=== PATIENT | female | born 1990 | race Caucasian/White ===

== ENCOUNTER → 2019-02-15 | Outpatient (CLI) | payer MEDICAID ==
[~2019-02-15] MED LIST: ACHD5005 PO; AMPI500C9; DOCU-143 PO; IBUP-1773 PO
--- NOTE | 2019-02-15 11:16 | Diagnostic Imaging Report ---
INDICATION: survey. TECHNIQUE: Multiple real-time grayscale images were obtained over the gravid uterus. COMPARISON: None. FINDINGS: There is an intrauterine fetus in a transverse presentation. No heart motion is detected, consistent with demise. Placenta is anterior. Amniotic fluid is grossly unremarkable. Cervical length is 4.2 cm. Biometrical measurements are as follows: Biparietal 2.89 cm, age 15 weeks 2 days. Head circumference 11.67 cm, age 15 weeks 6 days. Abdominal circumference 10.63 cm, age 16 weeks 4 days. Femur length 2.02 cm, age 16 weeks 1 days. Sonographic estimate age: 16 weeks 0 days. Sonographic estimated date of delivery: 08/02/2019. Estimated Weight: 149 gm (+/- 22 gm). LMP percentile: 2%. heart rate: 0 beats per minute. number: 1 of 1. IMPRESSION: Findings consistent with a 16 weeks 0 day intrauterine demise. Dictated by: Dictated on workstation # [id number]
== END ==
LOC: RAD 09:58
PROVIDERS: ATTEND Obstetrics & Gynecology
DX: Z36.89 Encounter for other specified antenatal screening (principal); Z3A.16 16 weeks gestation of pregnancy
CPT/HCPCS: 76805

== ENCOUNTER 2019-02-18 00:53 | Observation (INO) | payer MEDICAID | END 2019-02-18 11:40 | disposition home or self-care (01) | LOC: ER 00:53 → WS 02:00 ==

== ENCOUNTER 2019-03-19 18:31 | Emergency (ER) | payer MEDICAID ==
[~2019-03-19] VITALS: Ht 167.6 cm; Wt 122.5 kg
--- NOTE | 2019-03-19 18:42 | NUR ---
B/P 146/54
[2019-03-19] MEDS ORDERED: FAMOTIDINE 20 MG (PEPCID) TABLET PO STA (18:47)
[2019-03-19] MEDS ORDERED: ONDANSETRON 4 MG (ZOFRAN) ORAL DISSOLVE TAB SL STA (18:47)
[2019-03-19 18:52] LABS: BILIRUBIN,URINE NEGATIVE (NEGATIVE); CLARITY,URINE CLEAR; COLOR,URINE YELLOW; GLUCOSE, URINE (UA) NEGATIVE (NEGATIVE); KETONES,URINE NEGATIVE (NEGATIVE); LEUKOCYTE ESTERASE ,URINE 1+ (NEGATIVE); NITRITE,URINE NEGATIVE (NEGATIVE); PH,URINE 6 (5-9); PROTEIN,URINE NEGATIVE (NEGATIVE); UROBILINOGEN,URINE NORMAL (NORMAL)
--- NOTE | 2019-03-19 18:54 | ED Abdominal Pain ---
General Chief Complaint: Abdominal/GI Problems Stated Complaint: ABD PAIN Nursing Triage Note: pt had an intense epigastric pain while cooking supper then vomited after. Pt has a tight squeezing pressure still. Sepsis Screen: No Definite Risk Source of Information: Patient Exam Limitations: No Limitations History of Present Illness Date Seen by Provider: Mar 19, 2019 Time Seen by Provider: 18:40 Initial Comments The patient presents to the ER by private conveyance with chief complaint that she was fixing dinner for or family within the last hour and she had a sudden wave of pain 8 out of 10 with a wave of nausea and vomiting times one. The pain was epigastric. She's never had anything like this before. No history of abdominal surgeries. No medical history. She is not having any medicines. No dysuria fever chills cough shortness of breath. She says she had not sat down to eat yet; they were making quesadillas. She did not try taking anything for the pain. She's no longer feeling nauseated and her pain presently is a 6 out of 10. She'll bowel movement earlier today normal formed. Allergies and Home Medications Allergies Coded Allergies: No Known Drug Allergies (Unverified , 02/18/19) Patient Home Medication List Home Medication List Reviewed: Yes Review of Systems Review of Systems Constitutional: No chills, No fever EENTM: No Blurred Vision, No Double Vision Respiratory: Denies Cough, Denies Orthopnea Cardiovascular: Denies Chest Pain, Denies Edema Gastrointestinal: Denies Abdomen Distended; Abdominal Pain; Denies Constipated, Denies Diarrhea; Nausea, Vomiting Past Mdxrxtt-Ufsjft-Asjxww Hx Patient Social History Alcohol Use: Rarely Uses Number of Drinks Today: AA Alcohol Beverage of Choice: Beer Recreational Drug Use: No Smoking Status: Never a Smoker Recent Foreign Travel: No Contact w/Someone Who Travel: No Recent Infectious Disease Expo: No Recent Hopitalizations: No Immunizations Up To Date Tetanus Booster (TDap): Less than 5yrs PED Vaccines UTD: Yes Seasonal Allergies Seasonal Allergies: No Past Medical History Surgeries: No Respiratory: No Cardiac: No Neurological: No Gastrointestinal: No Musculoskeletal: No Endocrine: No HEENT: No Cancer: No Psychosocial: No Integumentary: No Physical Exam Vital Signs Vital Signs - First Documented 03/19/19 18:36 O2 Delivery Room Air Capillary Refill : Less Than 3 Seconds Height/Weight/BMI Height: 5'6.00" Weight: 270lbs. 0.0oz. 122.479750kn; 39.2 BMI Method:Stated General Appearance: WD/WN, no apparent distress HEENT: PERRL/EOMI, pharynx normal Respiratory: no respiratory distress, no accessory muscle use Cardiovascular: normal peripheral pulses, regular rate, rhythm, no edema Peripheral Pulses: 2+ Radial Pulses (R), 2+ Radial Pulses (L) Gastrointestinal: normal bowel sounds, soft, tenderness (epigastric midline) Neurologic/Psychiatric: alert, normal mood/affect Progress/Results/Core Measures Results/Orders Lab Results Laboratory Tests Test 03/19/19 18:45 Range/Units Urine Color YELLOW Urine Clarity CLEAR Urine pH 6 5-9 Urine Specific [place] 1.025 H 1.016-1.022 Urine Protein NEGATIVE NEGATIVE Urine Glucose (UA) NEGATIVE NEGATIVE Urine Ketones NEGATIVE NEGATIVE Urine Nitrite NEGATIVE NEGATIVE Urine Bilirubin NEGATIVE NEGATIVE Urine Urobilinogen NORMAL NORMAL MG/DL Urine Leukocyte Esterase 1+ H NEGATIVE Urine RBC (Auto) NEGATIVE NEGATIVE Urine RBC NONE /HPF Urine WBC NONE /HPF Urine Squamous Epithelial Cells 10-25 H /HPF Urine Crystals NONE /LPF Urine Bacteria TRACE /HPF Urine Casts NONE /LPF Urine Mucus NEGATIVE /LPF Urine Culture Indicated NO My Orders Orders - DIANA MARKS Ua Culture If Indicated (03/19/19 18:32) Urine Bedside (03/19/19 18:32) Ondansetron Oral Dissolve Tab (Zofran (03/19/19 18:47) Lidocaine 2% Viscous 15 Ml (Xylocaine Vi (03/19/19 19:00) Famotidine Tablet (Pepcid Tablet) (03/19/19 18:47) Antacid Suspension (Mylanta Suspension (03/19/19 19:00) Medications Given in ED Current Medications Medications Dose Ordered Sig/Katherine Route Start Time Stop Time Status Last Admin Dose Admin Al Hydrox/Mg Hydrox/Simethicone 30 ml ONCE ONCE PO 03/19/19 19:00 03/19/19 19:01 DC 03/19/19 19:00 30 ML Lidocaine HCl 15 ml ONCE ONCE PO 03/19/19 19:00 03/19/19 19:01 DC 03/19/19 19:01 15 ML Vital Signs/I&O 03/19/19 18:36 B/P (MAP) O2 Delivery Room Air Progress Progress Note #1: Time: 18:53 Progress Note We'll start with Zofran and a GI cocktail. She says she is not having any nausea vomiting. If it does not help her symptoms then we'll obtain labs and if necessary imaging. Urinalysis with bedside test. Progress Note #2: Time: 19:22 Progress Note The GI cocktail made a significant decrease in the patient's symptoms. She was not having nausea before the Zofran. Plan to put her out on Carafate and omeprazole with planned follow-up with Dr. Alexander. Departure Impression Primary Impression: Gastritis Qualified Codes: K29.00 - Acute gastritis without bleeding Disposition: HOME, SELF-CARE Condition: Stable Departure-Patient Inst. Decision time for Depature: 19:23 Referrals: ANTONINO ALEXANDER,LOCAL PHYSICIAN (PCP) Primary Care Physician Patient Instructions: Gastritis (DC) Add. Discharge Instructions: Plan to protect your stomach by reducing the acid using omeprazole 40 mg daily for the next 2-4 weeks. You should also flower picker the Carafate and take one tablet half an hour before meals and at bedtime, 4 times a day for the next 2 weeks. Plan to follow up with the general surgeon Dr. Alexander to review your case and discuss whether endoscopy is indicated in 2 weeks. Return to the ER if you have intractable nausea, vomiting, fever or pain. All discharge instructions reviewed with patient and/or family. Voiced understanding. Scripts Omeprazole (Omeprazole) 40 Mg Capsule. 40 MG PO DAILY for 30 Days, #30 CAP 0 Refills Prov: DIANA MARKS 03/19/19 Sucralfate (Carafate) 1 Gm Tablet 1 GM PO QIDACHS for 14 Days, #56 TAB 0 Refills Prov: DIANA MARKS 03/19/19 Copy Copies To 1: ANTONINO ALEXANDER TITUS J Mar 19, 2019 18:54
[2019-03-19 19:00] LABS: BACTERIA,URINE TRACE /HPF
[2019-03-19] MEDS ORDERED: LIDOCAINE 2% VISCOUS 15 ML UDC PO ONE (19:00)
[2019-03-19] MEDS ORDERED: ANTACID SUSP 30 ML UDC (MYLANTA) PO ONE (19:00)
--- NOTE | 2019-03-19 19:02 | NUR ---
REPORT TO ADELINA MAYORGA
[2019-03-19] MEDS ORDERED: SUCR1TAB36 PO (19:26)
[2019-03-19] MEDS ORDERED: OMEP40CA36 PO (19:26)
[2019-03-19 19:43] VITALS: BP 126/78
== END 2019-03-19 19:41 | disposition home or self-care (01) ==
LOC: EDUNIT# 18:31 → ER 18:32
DX: K29.70 Gastritis, unspecified, without bleeding (principal)
CPT/HCPCS: 81000; 84703; 99283

== ENCOUNTER 2021-07-20 02:02 | Emergency (ER) | payer SELFPAY ==
[~2021-07-20] VITALS: Ht 173 cm; Wt 136.0 kg
[~2021-07-20 02:02] MED LIST changes: +OMEP40CA6 PO; +SUCR1TAB36 PO
[2021-07-20] MEDS ORDERED: KETOROLAC 60 MG/2 ML VIAL IM STA (02:25)
[2021-07-20] MEDS ORDERED: ONDANSETRON 4 MG (ZOFRAN) ORAL DISSOLVE TAB SL STA (02:25)
--- NOTE | 2021-07-20 02:33 | ED General ---
General Chief Complaint: Head/Cervical Problems Stated Complaint: NECK & JAW PAIN Nursing Triage Note: right sided neck pain radiating to right jaw x12 days Source of Information: Patient History of Present Illness Date Seen by Provider: Jul 20, 2021 Time Seen by Provider: 02:15 Initial Comments PT ARRIVES VIA POV FROM HOME--DROVE SELF HERE C/O PAIN TO RIGHT SIDE OF NECK, RADIATING TO RIGHT JAW X 12 DAYS STATES ALL THE TEETH ON THE RIGHT SIDE--BOTH UPPER AND LOWER--ALL HURT C/O NUMBNESS AND TINGLING DOWN RIGHT ARM + NAUSEA ALL DAY, VOMITED X 2 TODAY C/O HEADACHE ON RIGHT SIDE OF HEAD NO FEVER OR RECENT ILLNESS NO URI SYMPTOMS STATES SHE HAS BEEN MOVING, BUT DENIES ANY HEAVY LIFTING NO RELIEF WITH IBUPROFEN "2500 MG" AND TYLENOL "1200 MG" TODAY STATES SHE HAD SIMILAR PROBLEM 2 YEARS AGO, BUT WENT TO [facility] AND SYMPTOMS RESOLVED HAS NOT SOUGHT CARE ANYWHERE UNTIL TONIGHT SYMPTOMS NO DIFFERENT TONIGHT STATES SYMPTOMS JUST GRADUALLY GETTING WORSE OVER TIME LMP 2018--HAS IUD IN PLACE PCP: MELISSA Allergies and Home Medications Allergies Coded Allergies: No Known Drug Allergies (Unverified , 02/18/19) Patient Home Medication List Home Medication List Reviewed: Yes Discontinued Medications Omeprazole (Omeprazole) 40 Mg Capsule., 40 MG PO DAILY Discontinued Reason: No Longer Taking Prescribed by: DIANA MARKS on 03/19/191925 Last Action: Discontinued Sucralfate (Carafate) 1 Gm Tablet, 1 GM PO QIDACHS Discontinued Reason: No Longer Taking Prescribed by: DIANA MARKS on 03/19/191925 Last Action: Discontinued Review of Systems Review of Systems Constitutional: no symptoms reported EENTM: see HPI Respiratory: no symptoms reported Cardiovascular: other (RIGHT UPPER CHEST DISCOMFORT X 1 WEEK) Gastrointestinal: see HPI; No abdominal pain; nausea, vomiting Genitourinary: no symptoms reported Musculoskeletal: see HPI, neck pain Skin: no symptoms reported; No rash Psychiatric/Neurological: See HPI, Anxiety, Headache, Numbness, Paresthesia; Denies Weakness Hematologic/Lymphatic: No Symptoms Reported Immunological/Allergic: no symptoms reported Past Mcwrqaq-Mepcys-Teplfy Hx Patient Social History Tobacco Use?: No Substance use?: No Alcohol Use?: No Pt feels they are or have been: No Immunizations Up To Date Tetanus Booster (TDap): Less than 5yrs PED Vaccines UTD: Yes Seasonal Allergies Seasonal Allergies: No Past Medical History Surgery/Hospitalization HX: BMT'S APPENDECTOMY D&C FOR MISCARRIAGE SALPINGECTOMY FOR ECTOPIC Surgeries: Yes Appendectomy, Ear Surgery Respiratory: Yes Asthma Cardiac: No Neurological: No Reproductive Disorders: Yes (ECTOPIC WITH SALPINGECTOMY, MISCARRIAGE WITH D&C) Genitourinary: No Gastrointestinal: No Musculoskeletal: No Endocrine: Yes (OBESITY) HEENT: No Cancer: No Psychosocial: No Integumentary: No Blood Disorders: No Physical Exam Vital Signs Vital Signs - First Documented 07/20/21 02:09 Temp 36.8 Pulse 74 Resp 16 B/P (MAP) 197/112 (140) Pulse Ox 97 O2 Delivery Room Air Capillary Refill : Height, Weight, BMI Height: 5'6.00" Weight: 270lbs. 0.0oz. 122.144185bl; 45.00 BMI Method:Stated General Appearance: WD/WN, Anxious HEENT: PERRL/EOMI, TMs Normal, Pharynx Normal, Moist Mucous Membranes, Other (RIGHT TMJ AND MANDIBULAR TENDERNESS BUT NO TRISMUS. NO EVIDENCE OF DENTAL INFECTION. NO SWELLING TO FACE. TENDERNESS TO RIGHT MASTOID/POST AURICULAR AREA.) Neck: Full Range of Motion, Tender Lateral (TENDERNESS TO RIGHT POSTERIOR NECK AND TRAPEZIUS AREA) Respiratory: Normal Breath Sounds, No Accessory Muscle Use, No Respiratory Distress, Other (TENDERNESS TO RIGHT TRAPEZIUS, CLAVICLE AND SUBCLAVICULAR AREA) Cardiovascular: Regular Rate, Rhythm, No Edema, No JVD, No Murmur, Normal Peripheral Pulses Gastrointestinal: Soft Back: No CVA Tenderness, No Vertebral Tenderness, Other (RIGHT TRAPEZIUS MUSCLE TENDERNESS AND SPASMS--PALPATION DRAMATICALLY REPRODUCES PAIN ) Extremity: Normal Capillary Refill, Normal Inspection, Normal Range of Motion, Non Tender, No Calf Tenderness, No Pedal Edema Neurologic/Psychiatric: Alert, Oriented x3, No Motor/Sensory Deficits, hot baller II- XII Norm as Tested Skin: Normal Color, Warm/Dry; No Rash; Tattoos/Piercings Progress/Results/Core Measures Suspected Sepsis SIRS Temperature: Pulse: 74 Respiratory Rate: 16 Blood Pressure 197 /112 Mean: 140 Results/Orders My Orders Orders - DARREL IVAN DO Ct Head/Face/Cervical Wo (07/20/21 02:25) Ondansetron Oral Dissolve Tab (Zofran (07/20/21 02:25) Ketorolac Injection (Toradol Injection) (07/20/21 02:25) Vital Signs/I&O 07/20/21 07/20/21 02:09 02:31 Temp 36.8 36.8 Pulse 74 Resp 16 B/P (MAP) 197/112 (140) Pulse Ox 97 O2 Delivery Room Air Capillary Refill : Blood Pressure Mean: 140 Progress Note : Progress Note GIVEN ZOFRAN ODT AND TORADOL IM WITH IMPROVEMENT IN SYMPTOMS Diagnostic Imaging Comments CT HEAD/MAXILLOFACIALS/CERVICAL SPINE--PER [facility] VIA FAX AT Departure Impression Primary Impression: Trapezius muscle strain Disposition: 01 HOME, SELF-CARE Condition: Improved Departure-Patient Inst. Decision time for Depature: 03:59 Referrals: [facility] ESCAM[facility] Patient Instructions: Muscle Strain ED Add. Discharge Instructions: MOIST HEAT TO AREA AT 20 MINUTE INTERVALS LOTS OF FLUIDS FOLLOW UP WITH [facility] OR YOUR [facility] THIS WEEK FOR FURTHER CARE All discharge instructions reviewed with patient and/or family. Voiced understanding. Scripts Cyclobenzaprine HCl (Cyclobenzaprine HCl) 10 Mg Tablet 10 MG PO Q8H PRN for SPASMS, #15 TAB 0 Refills Prov: DARREL IVAN DO 07/20/21 Ondansetron (Ondansetron Odt) 4 Mg Tab.rapdis 4 MG PO Q4H for Nausea/Vomiting, #10 TAB Prov: DARREL IVAN DO 07/20/21 Ketorolac Tromethamine (Ketorolac Tromethamine) 10 Mg Tablet 10 MG PO Q6H for Pain, #15 TAB Prov: DARREL IVAN DO 07/20/21 DARREL IVAN DO Jul 20, 2021 02:33
[2021-07-20] MEDS ORDERED: RX-CYCLOBENZAPRINE 10 MG (FLEXERIL) TAB PPK#3 PO STA (03:58)
[2021-07-20] MEDS ORDERED: CYCL10TA25 PO (04:00)
[2021-07-20] MEDS ORDERED: KETO10TA PO (04:00)
[2021-07-20] MEDS ORDERED: ONDA4TAB11 PO (04:00)
[2021-07-20 04:04] VITALS: BP 160/102
--- NOTE | 2021-07-20 05:14 | Diagnostic Imaging Report ---
EXAMINATION: CT head, face and CT cervical spine without contrast. TECHNIQUE: Multiple contiguous axial images were obtained through the face, brain and cervical spine without the use of intravenous contrast. Sagittal and coronal reformations through the cervical spine were then performed. All CT scans use one or more of the following dose optimizing techniques: automated exposure control, MA and/or KvP adjustment based on patient size and exam type or iterative reconstruction. HISTORY: Head and neck pain after injury COMPARISON: None available. FINDINGS: HEAD: The ventricles and sulci are normal. No abnormal attenuation of brain parenchyma is present. No acute intracranial hemorrhage or abnormal extra-axial fluid collections are present. No hyperdense vessel. The calvarium is intact. The mastoid air cells are clear. Bilateral maxillary sinus polyps versus mucous retention cysts. The orbits are normal. C-SPINE: Vertebral body height and alignment are preserved. No acute fracture, dislocation, or destructive osseous process. No facet hypertrophy or perched facets. No significant central canal or neuroforaminal stenosis. The paraspinous soft tissues are normal. The visualized thyroid gland is normal. The visualized lung apices are normal. FACE: No fracture is seen in the face. The nasal bones are normal. Mandible and maxillae are normal. Zygomatic arches are normal. Pterygoid plates are normal. No soft tissue abnormality is seen. IMPRESSION: 1. No acute intracranial abnormality. 2. No cervical spine fracture. 3. No fracture in the face. 4. Agree with preliminary interpretation. Dictated by: Dictated on workstation # [id number]
== END 2021-07-20 04:05 | disposition home or self-care (01) ==
LOC: EDUNIT# 02:02 → ER 02:06
DX: S46.911A Strain of unspecified muscle, fascia and tendon at shoulder and upper arm level, right arm, initial encounter (principal); J45.909 Unspecified asthma, uncomplicated; E66.9 Obesity, unspecified; Z68.42 Body mass index [BMI] 45.0-49.9, adult; X58.XXXA Exposure to other specified factors, initial encounter
CPT/HCPCS: 70450; 70486; 72125

== ENCOUNTER 2021-12-21 00:25 | Emergency (ER) | payer OTHER ==
[~2021-12-21] VITALS: Ht 172.8 cm; Wt 136.0 kg
[~2021-12-21 00:25] MED LIST changes: +CYCL10TA25 PO; +KETO10TA PO; +ONDA4TAB11 PO
[2021-12-21 00:59] VITALS: BP 143/89
[2021-12-21] MEDS ORDERED: LACTATED RINGERS 1,000 ML IV ONE (01:15)
[2021-12-21 01:18] LABS: BASOPHILS % (AUTO) 0 % (0-10); EOSINOPHILS # (AUTO) 0.1 10^3/uL (0.0-0.3); EOSINOPHILS % (AUTO) 1 % (0-10); HEMATOCRIT 39 % (35-52); HEMOGLOBIN 12.7 g/dL (11.5-16.0); LYMPHOCYTES # (AUTO) 2.4 10^3/uL (1.0-4.0); LYMPHOCYTES % (AUTO) 26 % (12-44); MEAN CORPUSCULAR HEMOGLOBIN 28 pg (25-34); MEAN CORPUSCULAR HGB CONC 33 g/dL (32-36); MEAN CORPUSCULAR VOLUME 84 fL (80-99); MEAN PLATELET VOLUME 9.6 fL (9.0-12.2); MONOCYTES # (AUTO) 0.6 10^3/uL (0.0-1.0); MONOCYTES % (AUTO) 7 % (0-12); NEUTROPHILS # (AUTO) 6.1 10^3/uL (1.8-7.8); NEUTROPHILS % (AUTO) 66 % (42-75); PLATELET COUNT 325 10^3/uL (130-400); WHITE BLOOD COUNT 9.2 10^3/uL (4.3-11.0)
[2021-12-21 01:20] LABS: BILIRUBIN,URINE NEGATIVE (NEGATIVE); CLARITY,URINE CLEAR; COLOR,URINE YELLOW; GLUCOSE, URINE (UA) NEGATIVE (NEGATIVE); KETONES,URINE NEGATIVE (NEGATIVE); LEUKOCYTE ESTERASE ,URINE NEGATIVE (NEGATIVE); NITRITE,URINE NEGATIVE (NEGATIVE); PROTEIN,URINE NEGATIVE (NEGATIVE)
[2021-12-21 01:35] LABS: BACTERIA,URINE NEGATIVE /HPF; SQUAMOUS EPITHELIAL CELL,UR 0-2 /HPF
[2021-12-21 01:37] LABS: ALBUMIN 4.2 GM/DL (3.2-4.5); POTASSIUM 4.1 MMOL/L (3.6-5.0)
[2021-12-21 01:38] LABS: CALCIUM 9.2 MG/DL (8.5-10.1)
[2021-12-21 01:39] LABS: TOTAL PROTEIN 7.6 GM/DL (6.4-8.2)
[2021-12-21 01:41] LABS: BILIRUBIN,TOTAL 0.3 MG/DL (0.1-1.0)
[2021-12-21 01:43] LABS: CREATININE SERUM 0.71 MG/DL (0.60-1.30)
[2021-12-21 01:52] LABS: AMPHETAMINE SCREEN, URINE NEGATIVE (NEGATIVE); BARBITURATE SCREEN URINE NEGATIVE (NEGATIVE); BENZODIAZEPINES SCREEN URINE NEGATIVE (NEGATIVE); CANNABINOID SCREEN, URINE NEGATIVE (NEGATIVE); COCAINE SCREEN URINE NEGATIVE (NEGATIVE); METHADONE STAT NEGATIVE (NEGATIVE); OPIATE SCREEN URINE NEGATIVE (NEGATIVE); OXYCODONE STAT NEGATIVE (NEGATIVE); PROPOXYPHENE STAT NEGATIVE (NEGATIVE); TRICYCLIC ANTIDEPRESSANTS SCRE NEGATIVE (NEGATIVE)
[2021-12-21] MEDS ORDERED: NS 100 ML (IVPB) BAG IV ONE (02:15)
[2021-12-21] MEDS ORDERED: CATHETER FLUSH 10 ML SYR IV PRN (02:15)
[2021-12-21] MEDS ORDERED: IOHEXOL 350 MG/ML 100 ML (OMNIPAQUE 350) VIAL IV ONE (02:15)
[2021-12-21] MEDS ORDERED: PANTOPRAZOLE 40 MG (PROTONIX) VIAL ONE (02:52)
[2021-12-21] MEDS ORDERED: ONDANSETRON 4 MG/2 ML (SDV) Z0FRAN ONE (02:52)
[2021-12-21] MEDS ORDERED: ONDANSETRON 4 MG/2 ML (SDV) Z0FRAN IVP ONE ×2 (03:00→03:30)
[2021-12-21] MEDS ORDERED: PANTOPRAZOLE 40 MG (PROTONIX) VIAL IV ONE (03:00)
[2021-12-21] MEDS ORDERED: KETOROLAC 30 MG/ML VIAL IVP ONE (03:30)
[2021-12-21] MEDS ORDERED: HYOSCYAMINE 0.125 MG (LEVSIN) TAB PO ONE (03:30)
[2021-12-21] MEDS ORDERED: PANT40TA2 PO (03:39)
[2021-12-21] MEDS ORDERED: ONDA8TAB13 PO (03:39)
[2021-12-21] MEDS ORDERED: HYOS0.1283 SL (03:39)
--- NOTE | 2021-12-21 03:39 | ED Abdominal Pain ---
General Chief Complaint: Abdominal/GI Problems Stated Complaint: UPPER ABD PAIN Nursing Triage Note: Pt ambulates to ED 7 with c/o upper mid abdominal pain. Reports it started approximately 0430 Monday morning and has progressively gotten worse. Ibuprofen initially helped the pain this morning but this evening, it has not helped at all. Source of Information: Patient History of Present Illness Date Seen by Provider: Dec 21, 2021 Time Seen by Provider: 01:10 Initial Comments PT ARRIVES VIA POV FROM HOME C/O EPIGASTRIC PAIN THAT RADIATES STRAIGHT THRU TO BACK, SINCE WAKING AT 0430 ON 12/20/21 PAIN HAS BEEN A CONSTANT DULL ACHE, AND NOW IS A CONSTANT SQUEEZING PAIN + NAUSEA, NO VOMITING NORMAL BM TODAY NO URINARY SYMPTOMS NO FEVER NO HISTORY OF SIMILAR PT HAS HAD APPENDECTOMY, SALPINGECTOMY FOR ECTOPIC AND D&C. PT HAS IUD IN PLACE WITH LMP UNKNOWN. NO PRIOR GI PROBLEMS TOOK IBUPROFEN EARLIER TODAY WITH MINIMAL RELIEF. LAST ATE AT 1800--STEAK AND POTATOES. PCP: [facility] Allergies and Home Medications Allergies Coded Allergies: No Known Drug Allergies (Unverified , 02/18/19) Patient Home Medication List Home Medication List Reviewed: Yes Cyclobenzaprine HCl (Cyclobenzaprine HCl) 10 Mg Tablet, 10 MG PO Q8H PRN for SPASMS Prescribed by: DARREL IVAN on 07/20/21399 Hyoscyamine Sulfate (Levsin-Sl) 0.125 Mg Tab.subl, 0.25 MG SL Q4H Prescribed by: DARREL IVAN on 12/21/21338 Ketorolac Tromethamine (Ketorolac Tromethamine) 10 Mg Tablet, 10 MG PO Q6H Prescribed by: DARREL IVAN on 07/20/21399 Ondansetron (Ondansetron Odt) 4 Mg Tab.rapdis, 4 MG PO Q4H Prescribed by: DARREL IVAN on 07/20/21399 Ondansetron (Ondansetron Odt) 8 Mg Tab.rapdis, 8 MG PO Q6H Prescribed by: DARREL IVAN on 12/21/21338 Pantoprazole Sodium (Protonix) 40 Mg Tablet.dr, 40 MG PO DAILY Prescribed by: DARREL IVAN on 12/21/21338 Review of Systems Review of Systems Constitutional: no symptoms reported Respiratory: No Symptoms Reported Cardiovascular: No Symptoms Reported Gastrointestinal: See HPI, Abdominal Pain; Denies Constipated, Denies Diarrhea; Nausea; Denies Vomiting Genitourinary: No Symptoms Reported Musculoskeletal: see HPI, back pain Skin: no symptoms reported Psychiatric/Neurological: No Symptoms Reported Endocrine: No Symptoms Reported Hematologic/Lymphatic: No Symptoms Reported Past Idampuv-Lizism-Qwtpmz Hx Patient Social History Tobacco Use?: No Smoking Status: Never a Smoker Smokeless Tobacco Frequency: Never a User Use of E-Cig and/or Vaping dev: No Substance use?: No Alcohol Use?: No Pt feels they are or have been: No Immunizations Up To Date Tetanus Booster (TDap): Less than 5yrs PED Vaccines UTD: Yes Influenza Vaccine Up-to-Date: No; Not Current First/Initial COVID19 Vaccinat: N/A Seasonal Allergies Seasonal Allergies: No Past Medical History Surgery/Hospitalization HX: APPENDECTOMY, D&C FOR MISCARRIAGE, SALPINGECTOMY FOR ECTOPIC Surgeries: Yes Appendectomy, Ear Surgery Respiratory: Yes Asthma Cardiac: No Neurological: No : No Hx : 4 Hx Para: 2 Hx Total # of Abortions (Sp): 2 (1 MISCARRIAGE1 ECTOPIC) Reproductive Disorders: Yes (ECTOPIC WITH SALPINGECTOMY, MISCARRIAGE WITH D&C) 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 0.0oz. 122.431825ho; 45.00 BMI Method:Stated General Appearance: WD/WN, obese HEENT: PERRL/EOMI; No scleral icterus (R), No scleral icterus (L) Neck: normal inspection Respiratory: normal breath sounds, no respiratory distress, no accessory muscle use Cardiovascular: regular rate, rhythm, no murmur Gastrointestinal: normal bowel sounds, soft, no organomegaly, no pulsatile mass; No distended, No guarding, No rebound; tenderness (MODERATE EPIGASTRIC AND RUQ TENDERNESS. MILD PERIUMBILICAL AND SUPRAPUBIC TENDERNESS); No hernia, No mass Extremities: normal inspection Back: normal inspection, no CVA tenderness, no vertebral tenderness Neurologic/Psychiatric: inspector hairspring II-XII nml as tested, no motor/sensory deficits, alert, normal mood/affect, oriented x 3 Skin: normal color, warm/dry Progress/Results/Core Measures Results/Orders Lab Results Laboratory Tests Test 12/21/21 01:10 12/21/21 01:15 12/21/21 01:30 Range/Units White Blood Count 9.2 4.3-11.0 10^3/uL Red Blood Count 4.60 3.80-5.11 10^6/uL Hemoglobin 12.7 11.5-16.0 g/dL Hematocrit 39 35-52 % Mean Corpuscular Volume 84 80-99 fL Mean Corpuscular Hemoglobin 28 25-34 pg Mean Corpuscular Hemoglobin Concent 33 32-36 g/dL Red Cell Distribution Width 14.2 10.0-14.5 % Platelet Count 325 130-400 10^3/uL Mean Platelet Volume 9.6 9.0-12.2 fL Immature Granulocyte % (Auto) 1 % Neutrophils (%) (Auto) 66 42-75 % Lymphocytes (%) (Auto) 26 12-44 % Monocytes (%) (Auto) 7 0-12 % Eosinophils (%) (Auto) 1 0-10 % Basophils (%) (Auto) 0 0-10 % Neutrophils # (Auto) 6.1 1.8-7.8 10^3/uL Lymphocytes # (Auto) 2.4 1.0-4.0 10^3/uL Monocytes # (Auto) 0.6 0.0-1.0 10^3/uL Eosinophils # (Auto) 0.1 0.0-0.3 10^3/uL Basophils # (Auto) 0.0 0.0-0.1 10^3/uL Immature Granulocyte # (Auto) 0.1 0.0-0.1 10^3/uL Sodium Level 138 135-145 MMOL/L Potassium Level 4.1 3.6-5.0 MMOL/L Chloride Level 104 98-107 MMOL/L Carbon Dioxide Level 23 21-32 MMOL/L Anion Gap 11 5-14 MMOL/L Blood Urea Nitrogen 15 7-18 MG/DL Creatinine 0.71 0.60-1.30 MG/DL Estimat Glomerular Filtration Rate 117 BUN/Creatinine Ratio 21 Glucose Level 125 H 70-105 MG/DL Calcium Level 9.2 8.5-10.1 MG/DL Corrected Calcium 9.0 8.5-10.1 MG/DL Total Bilirubin 0.3 0.1-1.0 MG/DL Aspartate Amino Transf (AST/SGOT) 15 5-34 U/L Alanine Aminotransferase (ALT/SGPT) 17 0-55 U/L Alkaline Phosphatase 80 40-136 U/L Total Protein 7.6 6.4-8.2 GM/DL Albumin 4.2 3.2-4.5 GM/DL Amylase Level 37 25-125 U/L Lipase 48 8-78 U/L Urine Color YELLOW Urine Clarity CLEAR Urine pH 6.0 5-9 Urine Specific Diggs >=1.030 1.016-1.022 Urine Protein NEGATIVE NEGATIVE Urine Glucose (UA) NEGATIVE NEGATIVE Urine Ketones NEGATIVE NEGATIVE Urine Nitrite NEGATIVE NEGATIVE Urine Bilirubin NEGATIVE NEGATIVE Urine Urobilinogen 0.2 < = 1.0 MG/DL Urine Leukocyte Esterase NEGATIVE NEGATIVE Urine RBC (Auto) NEGATIVE NEGATIVE Urine RBC NONE /HPF Urine WBC NONE /HPF Urine Squamous Epithelial Cells 0-2 /HPF Urine Crystals NONE /LPF Urine Bacteria NEGATIVE /HPF Urine Casts NONE /LPF Urine Mucus NEGATIVE /LPF Urine Culture Indicated NO Urine Opiates Screen NEGATIVE NEGATIVE Urine Oxycodone Screen NEGATIVE NEGATIVE Urine Methadone Screen NEGATIVE NEGATIVE Urine Propoxyphene Screen NEGATIVE NEGATIVE Urine Barbiturates Screen NEGATIVE NEGATIVE Ur Tricyclic Antidepressants Screen NEGATIVE NEGATIVE Urine Phencyclidine Screen NEGATIVE NEGATIVE Urine Amphetamines Screen NEGATIVE NEGATIVE Urine Methamphetamines Screen NEGATIVE NEGATIVE Urine Benzodiazepines Screen NEGATIVE NEGATIVE Urine Cocaine Screen NEGATIVE NEGATIVE Urine Cannabinoids Screen NEGATIVE NEGATIVE Influenza Type A (RT-PCR) Not Detected Not Detecte Influenza Type B (RT-PCR) Not Detected Not Detecte SARS-CoV-2 RNA (RT-PCR) Not Detected Not Detecte My Orders Orders - DARREL IVAN DO Ed Iv/Invasive Line Start (12/21/21 01:12) Urine Bedside (12/21/21 01:12) Amylase (12/21/21 01:12) Cbc With Automated Diff (12/21/21 01:12) Comprehensive Metabolic Panel (12/21/21 01:12) Drug Screen Stat (Urine) (12/21/21 01:12) Lipase (12/21/21 01:12) Ua Culture If Indicated (12/21/21 01:12) Ed Iv/Invasive Line Start (12/21/21 01:12) Lactated Ringers (Lr 1000 Ml Iv Solution (12/21/21 01:15) Ct Abdomen/Pelvis W (12/21/21 01:24) Covid 19 Inhouse Test (12/21/21 01:36) Influenza A And B By Pcr (12/21/21 01:36) Isolation Central Supply Req (12/21/21 01:36) Iohexol Injection (Omnipaque 350 Mg/Ml 1 (12/21/21 02:15) Sodium Chloride Flush (Catheter Flush Sy (12/21/21 02:15) Ns (Ivpb) (Sodium Chloride 0.9% Ivpb Bag (12/21/21 02:15) Ondansetron Injection (Zofran Injectio (12/21/21 03:00) Pantoprazole Injection (Protonix Injecti (12/21/21 03:00) Ondansetron Injection (Zofran Injectio (12/21/21 02:52) Pantoprazole Injection (Protonix Injecti (12/21/21 02:52) Ketorolac Injection (Toradol Injection) (12/21/21 03:30) Hyoscyamine Sl Tablet (Levsin Sl Tablet) (12/21/21 03:30) Ondansetron Injection (Zofran Injectio (12/21/21 03:30) Medications Given in ED Current Medications Medications Dose Ordered Sig/Katherine Route Start Time Stop Time Status Last Admin Dose Admin Hyoscyamine Sulfate 0.25 mg ONCE ONCE PO 12/21/21 03:30 12/21/21 03:31 DC 12/21/21 03:39 0.25 MG Iohexol 100 ml ONCE ONCE IV 12/21/21 02:15 12/21/21 02:16 DC 12/21/21 02:19 100 ML Ketorolac Tromethamine 30 mg ONCE ONCE IVP 12/21/21 03:30 12/21/21 03:31 DC 12/21/21 03:37 30 MG Lactated Ringer's 1,000 ml @ 0 mls/hr Q0M ONCE IV 12/21/21 01:15 12/21/21 01:16 DC 12/21/21 01:31 999 MLS/HR Ondansetron HCl 4 mg ONCE ONCE IVP 12/21/21 03:00 12/21/21 03:01 DC 12/21/21 02:55 4 MG Ondansetron HCl 4 mg ONCE ONCE IVP 12/21/21 03:30 12/21/21 03:31 DC 12/21/21 03:38 4 MG Pantoprazole 40 mg ONCE ONCE IV 12/21/21 03:00 12/21/21 03:01 DC 12/21/21 02:58 40 MG Sodium Chloride 10 ml NEEDED PRN IV 12/21/21 02:15 12/21/21 02:19 10 ML Sodium Chloride 100 ml ONCE ONCE IV 12/21/21 02:15 12/21/21 02:16 DC 12/21/21 02:19 80 ML Vital Signs/I&O 12/21/21 00:59 Temp 36.8 Pulse 74 Resp 18 B/P (MAP) 143/89 (107) Pulse Ox 99 O2 Delivery Room Air Blood Pressure Mean: 107 Progress Progress Note : Progress Note GIVEN IV FLUIDS, ZOFRAN, PROTONIX, LEVSIN AND TORADOL WITH IMPROVEMENT IN SYMPTOMS Diagnostic Imaging Comments CT ABDOMEN/PELVIS--NO ACUTE PROCESS, PER [facility] VIA FAX AT 0320 Reviewed: Reviewed by Me Departure Impression Primary Impression: Upper abdominal pain Disposition: HOME, SELF-CARE Condition: Improved Departure-Patient Inst. Decision time for Depature: 03:37 Referrals: [facility] (PCP/Family) Primary Care Physician Patient Instructions: Abdominal Pain, Adult ED Add. Discharge Instructions: CLEAR LIQUIDS--WATER, BROTH, JELLO, GATORADE WHEN YOUR NAUSEA AND PAIN IS BETTER, ADD BRATS DIET TO CLEAR LIQUIDS--BANANAS, RICE, APPLESAUCE, TOAST, SALTINES FOLLOW UP WITH [facility] THIS WEEK FOR FURTHER CARE, RETURN TO ER IF WORSE All discharge instructions reviewed with patient and/or family. Voiced understanding. Scripts Hyoscyamine Sulfate (Levsin-Sl) 0.125 Mg Tab.subl 0.25 MG SL Q4H, #15 TAB Prov: DARREL IVAN DO 12/21/21 Ondansetron (Ondansetron Odt) 8 Mg Tab.rapdis 8 MG PO Q6H, #10 TAB Prov: DARREL IVAN DO 12/21/21 Pantoprazole Sodium (Protonix) 40 Mg Tablet.dr 40 MG PO DAILY, #15 TAB Prov: DARREL IVAN DO 12/21/21 DARREL IVAN DO Dec 21, 2021 03:39
--- NOTE | 2021-12-21 05:39 | Diagnostic Imaging Report ---
PROCEDURE: CT abdomen and pelvis with contrast. TECHNIQUE: Multiple contiguous axial images were obtained through the abdomen and pelvis after administration of intravenous contrast. Auto Exposure Controls were utilized during the CT exam to meet ALARA standards for radiation dose reduction. All CT scans use one or more of the following dose optimizing techniques: automated exposure control, MA and/or KvP adjustment based on patient size and exam type or iterative reconstruction. INDICATION: Upper abdominal pain, nausea, vomiting, history of appendectomy. No priors. FINDINGS: Lung bases clear. Liver, gallbladder, bile ducts, spleen, adrenals, and pancreas unremarkable. There are no opaque kidney stones. There is no hydroureteronephrosis. The appendix surgically absent. There is no diverticulitis. Some IUD device in place. No adnexal lesion. There is minute pelvic free fluid at the cul-de-sac within normal physiologic limits. No abscess, hematoma or acute fluid collection. No focal inflammatory process. No bowel wall thickening. No abnormal fecal loading. No pneumatosis, no free gas. The aortoiliac and mesenteric vessels patent and nonaneurysmal. IMPRESSION: Unremarkable abdominal pelvic CT. Agree with preliminary. Dictated by: Dictated on workstation # [id number]
== END 2021-12-21 04:10 | disposition home or self-care (01) ==
LOC: EDUNIT# 00:25 → ER 00:29
DX: R10.11 Right upper quadrant pain (principal); R10.13 Epigastric pain; R10.33 Periumbilical pain; E66.9 Obesity, unspecified; Z68.42 Body mass index [BMI] 45.0-49.9, adult; Z97.5 Presence of (intrauterine) contraceptive device; Z90.49 Acquired absence of other specified parts of digestive tract; Z90.722 Acquired absence of ovaries, bilateral; Z20.822 Contact with and (suspected) exposure to COVID-19
CPT/HCPCS: 36415; 74177; 80053; 80306; 81000; 82150; 83690; 84703; 85025; 87636

== ENCOUNTER 2022-01-04 05:34 | Outpatient (CLI) | payer SELFPAY ==
[~2022-01-04] VITALS: Ht 172.7 cm; Wt 134.8 kg
[~2022-01-04 05:34] MED LIST changes: +HYOS0.1283 SL; +ONDA8TAB13 PO; +PANT40TA2 PO
[2022-01-04] MEDS ORDERED: RT-ALBUINH IH (13:07)
== END 2022-01-04 13:18 | disposition home or self-care (01) ==
LOC: PREOP 05:34
PROVIDERS: ATTEND Surgery
DX: Z01.818 Encounter for other preprocedural examination (principal)

== ENCOUNTER 2022-01-07 08:56 | Day surgery (SDC) | payer OTHER ==
[~2022-01-07] VITALS: Ht 172.7 cm; Wt 134.8 kg
[2022-01-07] VITALS (12 sets, daily range): BP systolic 124–154; BP diastolic 64–99
[~2022-01-07 08:56] MED LIST changes: +RT-ALBUINH IH
[2022-01-07] MEDS ORDERED: LIDOCAINE/EPI 2% 1:200,00 (XYLOCAINE) 20 ML VIAL ONE (09:21)
[2022-01-07] MEDS ORDERED: LACTATED RINGERS 1,000 ML IV PRN (10:00)
[2022-01-07] MEDS ORDERED: ceFAZolin 2 GM IV Premixed 50 ML IV ONE (10:00)
[2022-01-07] MEDS ORDERED: IOPAMIDOL 61% 30 ML (ISOVUE 300) VIAL DUCT ONE (10:15)
--- NOTE | 2022-01-07 11:17 | Progress Note-Pre Operative ---
Pre-Operative Progress Note H&P Reviewed The H&P was reviewed, patient examined and no changes noted. Date Seen by Provider: Jan 07, 2022 Time Seen by Provider: 10:54 Date H&P Reviewed: Jan 07, 2022 Time H&P Reviewed: 10:54 Pre-Operative Diagnosis: Cholelithiasis ANTONINO MANLEY DO Jan 07, 2022 11:17
--- NOTE | 2022-01-07 12:17 | Progress Note-Post Operative ---
Post-Operative Progess Note Surgeon (s)/Agricultural Inspector (s) Surgeon ANTONINO MANLEY DO Agricultural Inspector: Dr. Hernandez to assist in retraction dissection and closure. Pre-Operative Diagnosis Cholelithiasis Post-Operative Diagnosis cholelithiasis, cholecystitis, hydrops Procedure & Operative Findings Date of Procedure 01/07/22 Procedure Performed/Findings PROCEDURE: Laparoscopic cholecystectomy with intraoperative cholangiogram. COMPLICATIONS: None. PROCEDURE: The patient was taken to the operating suite and was prepped and draped in sterile fashion. A surgical pause was performed. Just superior to the umbilicus, a 12 mm incision was made. Dissection was taken down to the fascia, which was then scored and grasped with a Chloe and the abdomen was then entered. A 0 Vicryl suture was placed in a [id number] fashion and a Cota trocar was placed and secured. Pneumoperitoneum was achieved. A 5mm trochar place in the subxyphoid and 2 in the right upper quadrant. The gallbladder was distended and inflamed, then grasped and elevated. It formed a hole and clear liquid drained out. Adhesions to the gallbladder had to be taken down. The cystic duct, and cystic artery were then dissected out. Clip was placed on the distal portion of the cystic duct which was then partially transected. An arrow catheter was inserted into the duct. The cholangiogram was then performed. No filing defects and contrast made its way into the duodenum. Catheter removed. Clips were placed on proximal portion of the cystic duct and then the duct was then transected. Clips were placed along the proximal and distal portion of the cystic artery which was then transected. Hook cautery was used to dissect the gallbladder from the gallbladder fossa achieving hemostasis. The gallbladder was placed in an Endobag and removed through the 12 mm trocar site. The abdomen was then reinspected. Copious amounts of irrigation were used to irrigate the abdomen and there were no signs of active bleeding. Hemostasis had been achieved. The 12 mm fascial defect was then closed with 0 Vicryl suture that had been placed in a [id number] fashion. The abdomen was then desufflated, the trocars were removed. The abdomen was then washed and dried. The skin was then closed using 4-0 Monocryl in a subcuticular fashion. The abdomen was washed and dried and Skin Affix was place over incisions. Patient tolerated the procedure well without any complications and was taken to the recovery room in stable condition. Anesthesia Type general Estimated Blood Loss Estimated blood loss (mL): minimal Specimens/Packing Specimens Removed gallbladder ANTONINO MANLEY DO Jan 07, 2022 12:17
[2022-01-07] MEDS ORDERED: TRM50T PO (12:19)
--- NOTE | 2022-01-07 12:20 | Discharge Inst-Simple/Standard ---
Discharge Inst-Standard Discharge Medications New, Converted or Re-Newed RX: Transmitted to Pharmacy Patient Instructions/Follow Up Plan of Care/Instructions/FU: 2 weeks Catherine Activity as Tolerated: No Discharge Diet: Regular Diet Other Inst to Patient Follow up Appt: Make appointment for 2 weeks. Instructions: No lifting greater than 10 pounds. No strenuous activity. May shower in 24 hours, no tub bath or soaking. Use incentive spirometer at home as directed. No Smoking Skin/Wound Care: You have special glue over incision, it will fall off on it's own. Symptoms to Report: Appetite Changes, Extremity Discoloration, Numbness/Tingling, Swelling Increased, Bleeding Excessive, Eyesight Changes, Pain Increased, Urine Color Change, Constipation(Persistent), Fever over 101 degree F, Pain/Pressure in chest, Urinating Difficulty, Cough Up/Vomit Blood, Heart Beat Irreg/Pounding, Pain/Pressure in jaw, Vaginal Bleeding Increase, Cramps in feet or legs, Lightheadedness, Pain/Pressure in shoulder, Diarrhea(Persistent), Memory Changes Suddenly, Questions/Concerns, Weight gain consecutive days, Dizziness/Fainting, Nausea/Vomiting, Shortness of Breath, Weight gain over 2 pounds. If eyes or skin turn yellow notify physician. If questions or concerns contact your physician Or seek help at emergency department. ANTONINO MANLEY DO Jan 07, 2022 12:20
--- NOTE | 2022-01-07 12:23 | Diagnostic Imaging Report ---
INDICATION: Fluoroscopy during intraoperative cholangiogram. Fluoroscopy was provided in the OR during intraoperative cholangiogram. 9 seconds of fluoroscopic time was utilized. 43 images were obtained demonstrating contrast being injected via the cystic duct remnant. Intrahepatic and extrahepatic bile ducts are normal caliber. No filling defects are seen. Contrast flows into the duodenum. IMPRESSION: Fluoroscopy during intraoperative cholangiogram. Dictated by: Dictated on workstation # [id number]
[2022-01-07] MEDS ORDERED: HYDROmorphone 2 MG/ML VIAL (DILAUDID) ONE (12:38)
[2022-01-07] MEDS ORDERED: ONDANSETRON 4 MG/2 ML (SDV) Z0FRAN IVP PRN (12:45)
[2022-01-07] MEDS ORDERED: HYDROmorphone 2 MG/ML VIAL (DILAUDID) IV ONE (12:45)
[2022-01-07] MEDS ORDERED: ONDANSETRON 4 MG/2 ML (SDV) Z0FRAN ONE (13:50)
--- NOTE | 2022-01-07 13:51 | Anesthesia-General Post-Op ---
General Patient Condition Mental Status/LOC: Same as Preop Cardiovascular: Satisfactory Nausea/Vomiting: Absent Respiratory: Satisfactory Pain: Controlled Complications: Absent Post Op Complications Complications None Follow Up Care/Instructions Patient Instructions None needed. Anesthesia/Patient Condition Patient Condition Patient is doing well, no complaints, stable vital signs, no apparent adverse anesthesia problems. No complications reported per nursing. D/C home per [facility] Criteria: Yes FRANCISCO JAVIER CANALES CRNA Jan 07, 2022 13:51
[2022-01-07] MEDS ORDERED: ONDANSETRON 4 MG/2 ML (SDV) Z0FRAN IVP ONE (14:00)
== END 2022-01-07 14:45 | disposition home or self-care (01) ==
LOC: SDC 08:56
PROVIDERS: ATTEND Surgery
DX: K80.12 Calculus of gallbladder with acute and chronic cholecystitis without obstruction (principal); R60.9 Edema, unspecified; E66.01 Morbid (severe) obesity due to excess calories; Z68.42 Body mass index [BMI] 45.0-49.9, adult
CPT/HCPCS: 76000; 84703; 87081; 88304

== ENCOUNTER → 2023-03-06 | Outpatient (CLI) | payer OTHER ==
[~2023-03-06] MED LIST changes: +ALBU8.5H6 IH; -RT-ALBUINH IH; +TRM50T PO
[2023-03-06 09:07] LABS: BASOPHILS % (AUTO) 1 % (0-10); EOSINOPHILS # (AUTO) 0.1 10^3/uL (0.0-0.3); EOSINOPHILS % (AUTO) 2 % (0-10); HEMATOCRIT 36 % (35-52); HEMOGLOBIN 11.8 g/dL (11.5-16.0); LYMPHOCYTES # (AUTO) 2.3 10^3/uL (1.0-4.0); LYMPHOCYTES % (AUTO) 36 % (12-44); MEAN CORPUSCULAR HEMOGLOBIN 27 pg (25-34); MEAN CORPUSCULAR HGB CONC 33 g/dL (32-36); MEAN CORPUSCULAR VOLUME 83 fL (80-99); MEAN PLATELET VOLUME 9.5 fL (9.0-12.2); MONOCYTES # (AUTO) 0.5 10^3/uL (0.0-1.0); MONOCYTES % (AUTO) 8 % (0-12); NEUTROPHILS # (AUTO) 3.5 10^3/uL (1.8-7.8); NEUTROPHILS % (AUTO) 54 % (42-75); PLATELET COUNT 300 10^3/uL (130-400); WHITE BLOOD COUNT 6.5 10^3/uL (4.3-11.0)
[2023-03-06 09:27] LABS: ALBUMIN 4.2 GM/DL (3.2-4.5); BILIRUBIN,TOTAL 0.3 MG/DL (0.1-1.0); CALCIUM 9.2 MG/DL (8.5-10.1); CREATININE SERUM 0.7 MG/DL (0.60-1.30); POTASSIUM 4.2 MMOL/L (3.6-5.0); TOTAL PROTEIN 7.2 GM/DL (6.4-8.2)
[2023-03-06 09:47] LABS: TSH (THYROID ANALYZER) 2.28 UIU/ML (0.35-4.94)
== END ==
LOC: LAB 08:34
PROVIDERS: ATTEND Nurse Practitioner Family
DX: N94.6 Dysmenorrhea, unspecified (principal); N92.0 Excessive and frequent menstruation with regular cycle
CPT/HCPCS: 36415; 80053; 80061; 82728; 82785; 83540; 84443; 85025